=== PATIENT | female | born 1945 | race Caucasian/White ===

== ENCOUNTER → 2016-07-15 | Outpatient (CLI) | payer MEDICARE ==
[~2016-07-15] MED LIST: AMLO5TAB2 PO; LISI-170 PO; MULT-516 PO; OMEG100023 PO
[2016-07-15 12:37] LABS: ASPARTATE AMINO TRANSFERASE 20 U/L (15-37); BLOOD UREA NITROGEN 15 mg/dL (7-18)
== END | disposition home or self-care (01) ==
LOC: STAR 10:39 → MERGE 11:00
PROVIDERS: ATTEND Surgery
DX: Z01.818 Encounter for other preprocedural examination (principal); D05.12 Intraductal carcinoma in situ of left breast
CPT/HCPCS: 36415; 80053; 93005

== ENCOUNTER 2016-07-21 10:14 | Day surgery (SDC) | payer MEDICARE ==
[~2016-07-21] VITALS: Ht 170.2 cm; Wt 85.0 kg
[~2016-07-21 10:14] MED LIST changes: +BUPIVACAINE/PF-EPI 0.25% 1:200K ONE
[2016-07-21] MEDS ORDERED: SODIUM BICARBONATE 4.2%, 5ML ONE (11:27)
[2016-07-21] MEDS ORDERED: LIDOCAINE 1%, 20ML ONE (11:27)
[2016-07-21 12:01] VITALS: BP 176/79
[2016-07-21] MEDS ORDERED: LACTATED RINGERS 1,000 ML IV SCH (12:01)
[2016-07-21] MEDS ORDERED: MIDAZOLAM 1 MG/ML, 2ML ONE (12:42)
[2016-07-21] MEDS ORDERED: FENTANYL PF 250 MCG/5ML ONE (12:42)
[2016-07-21] MEDS ORDERED: METOCLOPRAMIDE 5 MG/ML, 2ML IV PRN (13:30)
[2016-07-21] MEDS ORDERED: MIDAZOLAM 1 MG/ML, 2ML IV PRN (13:30)
[2016-07-21] MEDS ORDERED: ACETAMINOPHEN 325 MG TABLET PO PRN (13:30)
[2016-07-21] MEDS ORDERED: LABETALOL 5MG/ML, 20ML IV PRN (13:30)
[2016-07-21] MEDS ORDERED: hydrALAzine 20 MG/ML, 1ML IV PRN (13:30)
[2016-07-21] MEDS ORDERED: OXYcodone 5 MG/5 ML ORAL.SOL UDC PO PRN (13:30)
[2016-07-21] MEDS ORDERED: HYDROmorphone 1 MG/ML, 1ML IV PRN (13:30)
[2016-07-21] MEDS ORDERED: MEPERIDINE/PF 25MG/0.5ML IVPush PRN (13:30)
[2016-07-21] MEDS ORDERED: FENTANYL PF 100 MCG/2ML IV PRN (13:30)
[2016-07-21] MEDS ORDERED: ALBUTEROL/IPRATROPIUM 2.5MG/0.5MG, 3 ML NPPB PRN (13:30)
[2016-07-21] MEDS ORDERED: ONDANSETRON 2MG/ML, 2ML IVPush PRN (13:30)
[2016-07-21] MEDS ORDERED: PROMETHAZINE 25 MG/ML, 1ML IV PRN (13:30)
[2016-07-21] MEDS ORDERED: ONDANSETRON 2MG/ML, 2ML ONE (13:35)
[2016-07-21] MEDS ORDERED: DEXAMETHASONE 4 MG/ML, 5ML ONE (13:35)
[2016-07-21] MEDS ORDERED: GLYCOPYRROLATE 0.2MG/1ML ONE (13:35)
[2016-07-21] MEDS ORDERED: CEFAZOLIN 1,000 MG ONE (13:35)
[2016-07-21] MEDS ORDERED: PROPOFOL 10 MG/ML, 20ML ONE (13:35)
[2016-07-21] MEDS ORDERED: KETOROLAC 30 MG/1 ML ONE (13:35)
[2016-07-21] MEDS ORDERED: EPHEDRINE 50 MG/ML, 1ML ONE (13:35)
[2016-07-21] MEDS ORDERED: OXYcodone 5 MG/5 ML ORAL.SOL UDC ONE (15:00)
[2016-07-21] MEDS ORDERED: ACETAMINOPHEN 325 MG TABLET ONE (15:00)
[2016-07-21] MEDS ORDERED: ONDANSETRON ODT 4 MG PO ONE (17:30)
== END 2016-07-21 18:20 ==
LOC: CFH 10:14 → OUT 18:20
PROVIDERS: ATTEND Surgery
DX: D05.12 Intraductal carcinoma in situ of left breast (principal); I10 Essential (primary) hypertension; F41.9 Anxiety disorder, unspecified; K21.9 Gastro-esophageal reflux disease without esophagitis; Z87.891 Personal history of nicotine dependence
CPT/HCPCS: 19281; 19301; 88307; J0690; J1100; J1885; J2250; J2405; J2704; J3010; J3490; J7120; Q0162

== ENCOUNTER → 2017-05-18 | Outpatient (CLI) | payer MEDICARE ==
[~2017-05-18] MED LIST changes: -BUPIVACAINE/PF-EPI 0.25% 1:200K ONE
== END | disposition home or self-care (01) ==
LOC: CFH 14:13
PROVIDERS: ATTEND Radiology Radiation Oncology
DX: Z12.31 Encounter for screening mammogram for malignant neoplasm of breast (principal); Z85.3 Personal history of malignant neoplasm of breast; Z92.3 Personal history of irradiation; Z90.12 Acquired absence of left breast and nipple
CPT/HCPCS: 77063; 77067

== ENCOUNTER → 2017-06-07 | Outpatient (CLI) | payer MEDICARE | END | disposition home or self-care (01) | LOC: CFH 11:49 | PROVIDERS: ATTEND Licensed Practical Nurse | DX: Z13.820 Encounter for screening for osteoporosis (principal); M85.80 Other specified disorders of bone density and structure, unspecified site; N95.8 Other specified menopausal and perimenopausal disorders | CPT/HCPCS: 77080 ==

== ENCOUNTER → 2018-05-31 | Outpatient (CLI) | payer MEDICARE ==
[~2018-05-31] MED LIST changes: +AMLO-150 PO; -AMLO5TAB2 PO
== END | disposition home or self-care (01) ==
LOC: ROC 07:33
PROVIDERS: ATTEND Radiology Radiation Oncology
DX: D05.12 Intraductal carcinoma in situ of left breast (principal); M85.80 Other specified disorders of bone density and structure, unspecified site
CPT/HCPCS: G0463

== ENCOUNTER → 2019-05-27 | Outpatient (CLI) | payer MEDICARE | END | disposition home or self-care (01) | LOC: CFH 10:53 | PROVIDERS: ATTEND Radiology Radiation Oncology | DX: Z12.31 Encounter for screening mammogram for malignant neoplasm of breast (principal); D05.12 Intraductal carcinoma in situ of left breast; N64.89 Other specified disorders of breast; Z85.3 Personal history of malignant neoplasm of breast | CPT/HCPCS: 77063; 77067 ==

== ENCOUNTER → 2019-06-19 | Outpatient (CLI) | payer MEDICARE | END | disposition home or self-care (01) | LOC: CFH 10:33 | PROVIDERS: ATTEND Licensed Practical Nurse | DX: N95.9 Unspecified menopausal and perimenopausal disorder (principal); M85.9 Disorder of bone density and structure, unspecified; Z85.3 Personal history of malignant neoplasm of breast | CPT/HCPCS: 77080 ==

== ENCOUNTER → 2020-06-01 | Outpatient (CLI) | payer MEDICARE | END | disposition home or self-care (01) | LOC: CFH 13:59 | PROVIDERS: ATTEND Nurse Practitioner | DX: Z12.31 Encounter for screening mammogram for malignant neoplasm of breast (principal) | CPT/HCPCS: 77063; 77067 ==

== ENCOUNTER → 2020-06-11 | Outpatient (CLI) | payer MEDICARE | END | disposition home or self-care (01) | LOC: CFH 09:46 | PROVIDERS: ATTEND Nurse Practitioner Family | DX: N63.20 Unspecified lump in the left breast, unspecified quadrant (principal) | CPT/HCPCS: 77065 ==

== ENCOUNTER 2020-12-03 12:04 | Outpatient (CLI) | payer MEDICARE | END 2020-12-03 23:59 | disposition home or self-care (01) | LOC: CFH 12:04 | PROVIDERS: ATTEND Nurse Practitioner Family | DX: Z02.9 Encounter for administrative examinations, unspecified (principal) ==

== ENCOUNTER 2020-12-24 12:01 | Outpatient (CLI) | payer MEDICARE | END 2020-12-24 23:59 | disposition home or self-care (01) | LOC: CFH 12:01 | PROVIDERS: ATTEND Nurse Practitioner Family | DX: R92.1 Mammographic calcification found on diagnostic imaging of breast (principal) | CPT/HCPCS: 77061; 77065; G0279 ==